=== PATIENT | female | born 1990 | race African-American/Black ===

== ENCOUNTER 2019-02-20 18:36 | Emergency (ER) | payer SELFPAY ==
[~2019-02-20] VITALS: Ht 182.9 cm; Wt 104.3 kg
--- NOTE | 2019-02-20 19:45 | NUR ---
PT REFUSED CHEST XRAY ORDERED BY ER DOC. PT VERY UNCOPERATIVE AND KEEPS ASKING TO BE TRANSFERRED. WHEN ASKED WHY, SHE SAID BECAUSE SHE HAD HER KIDS TAKEN AWAY. DR SWANSON NOTIFED.
[2019-02-20 19:52] LABS: BASOPHILS # (AUTO) 0.1 (0.0-0.1); BASOPHILS % 0.8 % (0.0-1.0); EOSINOPHILS # (AUTO) 0.2 (0.0-0.4); EOSINOPHILS % 2.4 % (0.0-6.0); HEMATOCRIT 33.9 % (34.2-44.1); HEMOGLOBIN 11.6 g/dL (12.0-16.0); LYMPHOCYTES # (AUTO) 2.5 (1.0-3.2); MEAN CORPUSCULAR HEMOGLOBIN 32.1 pg (28-32); MEAN CORPUSCULAR HGB CONC 34.2 g/dL (31-35); MEAN CORPUSCULAR VOLUME 93.9 fL (81-99); MONOCYTES # (AUTO) 0.7 (0.2-0.8); MONOCYTES % 7.4 % (4.4-11.3); NEUTROPHILS % 63.2 % (38.7-80.0); PLATELET COUNT 354 x10e3/uL (140-360); RED BLOOD COUNT 3.61 x10e6/uL (3.6-5.1)
--- NOTE | 2019-02-20 20:00 | NUR ---
PT STATES THAT SHE WANTS TO LEAVE. PT ALSO STATES THAT SHE IS NOT SUICIDAL OR HALLUCINATING, AND NEVER WAS. PT SIGNED AMA FORM, BUT REFUSES TO LEAVE STATING THAT SHE NEEDS TO CHARGE HER CELL PHONE. INFORMED PT THAT SHE CAN CHARGE HE PHONE IN THE LOBBY. PT THEN CLOSED HER EYES LIKE SHE WAS GOING TO SLEEP. SITUATION WAS ESCALATED TO CHARGE NURSE VICTORIA SEPULVEDA RN, AND SUPERVISIOR SAMAN KING RN. SECURITY WAS CALLED FOR ASSISTANCE WHILE [employer] WAS CALLED. SHE WAS [facility] OUT [facility]ILDING [facility].
[2019-02-20 20:10] LABS: ALANINE AMINOTRANSFERASE 20 IU/L (0-55); ALBUMIN 3.8 g/dL (3.5-5.0); ALKALINE PHOSPHATASE 80 IU/L (40-150); ANION GAP 17.5 mmol/L (8-16); BLOOD UREA NITROGEN 23 mg/dL (7-26); BUN/CREATININE RATIO 21 (6-25); CALCIUM 9.5 mg/dL (8.4-10.2); CARBON DIOXIDE 20 mmol/L (22-29); CHLORIDE 103 mmol/L (98-107); CREATINE KINASE 2380 IU/L (29-168); CREATININE, SERUM 1.12 mg/dL (0.57-1.11); EST GLOMERULAR FILTRATION RATE > 60 ML/MIN (60-); GLUCOSE 150 mg/dL (74-118); POTASSIUM 3.5 mmol/L (3.5-5.1); SODIUM 137 mmol/L (136-145)
--- NOTE | 2019-02-20 20:10 | NUR ---
PT SIGNED OUT AMA. PT REFUSED TO RESPOND TO STAFF TO BE MOVED. SECURITY CALLED TO RM ANDPT IGNORING STAFF. [employer] [employer] CALLED FOR ASSISTANCE.
[2019-02-20 20:13] LABS: ACETAMINOPHEN < 3 ug/mL (10-30); SALICYLATE < 5.0 mg/dL (0-30)
== END 2019-02-20 20:30 | disposition left against medical advice (07) ==
LOC: ER 18:36
DX: R45.1 Restlessness and agitation (principal); F31.61 Bipolar disorder, current episode mixed, mild
CPT/HCPCS: 36415; 80053; 80320; 80329; 82550; 82553; 84484; 84702; 85025; 99282